=== PATIENT | female | born 1970 | race Caucasian/White ===

== ENCOUNTER → 2017-05-11 | Outpatient (CLI) | payer BC, OTHER ==
[~2017-05-11] VITALS: Ht 160 cm; Wt 51.4 kg
[~2017-05-11] MED LIST: ACYCLOVIR800 MG PO; ADVIL,NUPRIN,M200 MG PO; ALEVE220 MG PO; AMBIEN5 MG PO; ATIVAN0.5 MG PO; ATIVAN1 MG PO; ATORVASTATIN CA20 MG PO; ATORVASTATIN CA40 MG PO; Ativan PO; BACLOFEN10 MG PO; BACLOFEN20 MG PO; BELVIQ10 MG PO; BUSPAR PO; BUSPAR10 MG PO; CHRONULAC,CEPHUL1 ML PO; CO Q-1010 MG PO; COMPAZINE10 MG PO; CONSTULOSE10 GM/15 M PO; COUMADIN,JANTOVE4 MG PO; COUMADIN5 MG PO; CRESTOR40 MG PO; CYMBALTA30 MG PO; Ceftin PO; Chronulac,Cephulac,E PO; Coumadin Protocol PO; Coumadin,Jantoven PO; DAILY VALUE1 EACH PO; DAILY VITAMIN1 EAC8 PO; DIAZEPAM10 MG PO; DIFLUCAN200 MG PO; DOXYCYCLINE HY100 MG PO; ENTECAVIR0.5 MG PO; ENULOSE10 GM/15 M PO; FERROUS SULFAT325 MG PO; FLOMAX0.4 MG PO; FLORINEF ACETA0.1 MG PO; FLUCONAZOLE200 MG PO; FLUDROCORTISON0.1 M1 PO; FLUOXETINE HCL20 MG PO; Feosol PO; GABITRIL4 MG PO; HYDROCODONE/AP1 EACH PO; HYDROCORTISONE5 MG PD; HYDROCORTISONE5 MG PO; HYDROXYZINE PAM25 MG PO; IVIG IV; KEFLEX500 MG PO; KETOROLAC TROME10 MG PO; LASIX20 MG PO; LEXAPRO10 MG PO; LEXAPRO20 MG PO; LINZESS145 MCG PO; LORAZEPAM1 MG PO; LUNESTA2 MG PO; LYRICA100 MG PO; LYRICA50 MG PO; Lioresal PO; MIRTAZAPINE30 MG PO; MIRTAZAPINE45 MG PO; MOTRIN IB200 MG PO; MYLANTA GAS MA125 MG PO; NICOTINE PATCH1 EAC1 TD; NORTRIPTYLINE H10 MG PO; NUVIGIL50 MG PO; Neurontin PO; ONDANSETRON ODT8 MG PO; OPANA ER20 MG PO; OPANA ER30 MG PO; OPANA ER40 MG PO; OXYCODONE HCL E15 MG PO; OXYCODONE HCL15 MG PO; OXYMORPHONE HCL40 MG PO; Opana ER PO; PANTOPRAZOLE SO40 MG PO; POTASSIUM CHLO10 ME3 PO; POTASSIUM CHLO10 ME4 PO; PREDNISONE1 MG PO; PROCHLORPERAZIN10 MG PO; PROMETHAZINE HC25 M1 PO; PROVIGIL100 MG PO; PROZAC20 M1 PO; PROZAC40 MG PO; PROzac PO; RELISTOR12 MG/0.1 SC; RELISTOR8 MG/0.4 M SC; REMERON15 M2 PO; REMERON30 M2 PO; ROXICODONE15 MG PO; SILENOR3 MG PO; SUCRALFATE1 GM PO; SUCRALFATE1 GM/10 ML PO; SYNTHROID25 MCG PO; TAMSULOSIN HCL0.4 MG PO; TOPAMAX25 MG PO; TOPIRAMATE25 MG PO; TOPIRAMATE50 MG PO; Tylenol Regular Stre PO; VALIUM10 MG PO; VALIUM5 MG PO; VIBRA-TABS100 MG PO; VIBRAMYCIN100 MG PO; VITAMIN B122500 MCG PO; Valium PO; Vitamin B-12 PO; WELLBUTRIN75 MG PO; XANAX0.5 MG PO; XARELTO10 MG PO; XARELTO20 MG PO; Xarelto PO; ZITHROMAX Z-PA250 MG PO; ZOCOR20 MG PO; ZOFRAN4 MG PO; oxyCODONE PO; predniSONE PO
[2017-05-11 11:29] VITALS: BP 97/55
== END | disposition home or self-care (01) ==
LOC: IVINF 11:08
DX: Z45.2 Encounter for adjustment and management of vascular access device (principal)
CPT/HCPCS: 96523